=== PATIENT | male | born 1980 | race Two or more races ===

== ENCOUNTER 2020-11-29 17:43 | Emergency (ER) | payer MEDICAID ==
[~2020-11-29] VITALS: Ht 172.7 cm; Wt 54.5 kg
[~2020-11-29 17:43] MED LIST: ALBU8.5H8 IH
[2020-11-29] MEDS ORDERED: ACET-2119 PO (18:16)
== END 2020-11-29 18:26 | disposition home or self-care (01) ==
LOC: ER 17:43
DX: J02.9 Acute pharyngitis, unspecified (principal); Z20.828 Contact with and (suspected) exposure to other viral communicable diseases; R51.9 Headache, unspecified; Z79.899 Other long term (current) drug therapy
CPT/HCPCS: 36415; 87635; 99283

== ENCOUNTER 2021-02-01 14:24 | Emergency (ER) | payer MEDICAID ==
[~2021-02-01] VITALS: Ht 175.3 cm; Wt 70.0 kg
[2021-02-01 15:06] VITALS: BP 140/82
[2021-02-01] MEDS ORDERED: AMOX-117 PO (15:18)
--- NOTE | 2021-02-01 16:20 | NUR ---
Seen and assessed by provider.
== END 2021-02-01 16:21 | disposition home or self-care (01) ==
LOC: ER 14:24
DX: T16.2XXA Foreign body in left ear, initial encounter (principal); H72.92 Unspecified perforation of tympanic membrane, left ear; X58.XXXA Exposure to other specified factors, initial encounter; Y93.89 Activity, other specified; Y92.89 Other specified places as the place of occurrence of the external cause; Y99.8 Other external cause status
CPT/HCPCS: 69200; 99284